=== PATIENT | female | born 1995 | race African-American/Black ===

== ENCOUNTER 2018-10-05 17:52 | Emergency (ER) | payer SELFPAY, MEDICAID ==
[2018-10-05] MEDS: MECLIZINE 12.5 MG TAB PO (20:15)
[2018-10-05] MEDS: ONDANSETRON (ODT) 4 MG TAB ODT (20:17)
[2018-10-05 20:18] LABS: URINE BLOOD (Dip) POC Negative (NEGATIVE); URINE GLUCOSE (Dip) POC Negative (NEGATIVE); URINE KETONES (Dip) POC Negative (NEGATIVE); URINE LEUKOCYTE EST (Dip) POC Trace (NEGATIVE); URINE NITRITE (Dip) POC Negative (NEGATIVE); URINE TOTAL PROTEIN POC Negative (NEGATIVE)
== END 2018-10-05 21:14 | disposition home or self-care (01) ==
LOC: FTE 21:14
DX: H81.10 Benign paroxysmal vertigo, unspecified ear (principal); J45.909 Unspecified asthma, uncomplicated; J06.9 Acute upper respiratory infection, unspecified
CPT/HCPCS: 81003; 81025; 99283